=== PATIENT | female | born 1985 | race Caucasian/White ===

== ENCOUNTER 2017-07-14 11:55 | Emergency (ER) | payer OTHER, MEDICAID ==
[~2017-07-14] VITALS: Ht 162.6 cm; Wt 79.4 kg
[~2017-07-14 11:55] MED LIST: ABILIFY10 MG PO; ACETAMINOPHEN-1 EAC1 PO; BACTRIM DS TAB1 EACH PO; CYMBALTA30 MG PO; CYTOMEL 25 MCG25 MC1 PO; IBUPROFEN 600600 M1 PO; IBUPROFEN 800800 M1 PO; KLONOPIN0.5 MG PO; LAMICTAL (GREE1 EACH PO; LEVOTHYROXIN0.025 MG PO; LEVOTHYROXIN0.137 M1 PO; LEVOTHYROXINE 0.15MG; MACROBID 100 M100 M1 PO; NAPROSYN500 MG PO; NORCO 5-325 TA1 EACH PO; PENICILLIN V P500 MG PO; PENICILLIN VK500 M1 PO; RISPERDAL0.25 MG PO; TRAMADOL 50 MG50 MG PO; TRAZODONE 150150 M1 PO; ZOFRAN ODT4 MG PO
[2017-07-14 12:15] VITALS: BP 110/70
[2017-07-14] MEDS ORDERED: CELEXA20 MG PO (12:17)
[2017-07-14] MEDS ORDERED: AMOXICILLIN 50500 MG PO (12:40)
[2017-07-14] MEDS ORDERED: ACETAMINOPHEN-1 EAC1 PO (12:40)
== END 2017-07-14 12:48 | disposition home or self-care (01) ==
LOC: M.ERS 11:55
DX: K08.89 Other specified disorders of teeth and supporting structures (principal); F41.9 Anxiety disorder, unspecified; E03.9 Hypothyroidism, unspecified; M41.9 Scoliosis, unspecified; E06.3 Autoimmune thyroiditis; F31.9 Bipolar disorder, unspecified; F20.9 Schizophrenia, unspecified; M13.862 Other specified arthritis, left knee; M13.861 Other specified arthritis, right knee; M79.7 Fibromyalgia; Z90.710 Acquired absence of both cervix and uterus; Z98.890 Other specified postprocedural states; Z88.6 Allergy status to analgesic agent; Z88.4 Allergy status to anesthetic agent; Z77.22 Contact with and (suspected) exposure to environmental tobacco smoke (acute) (chronic)

== ENCOUNTER 2017-07-28 15:26 | Emergency (ER) | payer OTHER, MEDICAID ==
[~2017-07-28] VITALS: Ht 162.6 cm; Wt 78.0 kg
[~2017-07-28 15:26] MED LIST changes: +AMOXICILLIN 50500 MG PO; +CELEXA20 MG PO
[2017-07-28 15:33] VITALS: BP 121/73
[2017-07-28] MEDS ORDERED: NORCO 5-325 TA1 EAC1 PO (15:55)
[2017-07-28] MEDS ORDERED: PENICILLIN VK500 MG PO (15:55)
== END 2017-07-28 16:01 | disposition home or self-care (01) ==
LOC: M.ERS 15:26
DX: K02.9 Dental caries, unspecified (principal); M27.63 Post-osseointegration mechanical failure of dental implant; F41.9 Anxiety disorder, unspecified; E03.9 Hypothyroidism, unspecified; M41.9 Scoliosis, unspecified; E06.3 Autoimmune thyroiditis; F31.9 Bipolar disorder, unspecified; F20.9 Schizophrenia, unspecified; M13.862 Other specified arthritis, left knee; M13.861 Other specified arthritis, right knee; M79.7 Fibromyalgia; Z86.14 Personal history of Methicillin resistant Staphylococcus aureus infection; Z90.710 Acquired absence of both cervix and uterus; Z88.6 Allergy status to analgesic agent; Z88.8 Allergy status to other drugs, medicaments and biological substances; Z88.4 Allergy status to anesthetic agent; Z77.22 Contact with and (suspected) exposure to environmental tobacco smoke (acute) (chronic)

== ENCOUNTER 2017-08-14 20:04 | Emergency (ER) | payer OTHER, MEDICAID ==
[~2017-08-14] VITALS: Ht 162.6 cm; Wt 83.5 kg
[~2017-08-14 20:04] MED LIST changes: +NORCO 5-325 TA1 EAC1 PO; +PENICILLIN VK500 MG PO
[2017-08-14 20:30] LABS: ABSOLUTE EOSINOPHILS 0.3 thou/uL (0.0-0.7); ABSOLUTE LYMPHOCYTES 3.6 thou/uL (0.8-5.3); ABSOLUTE MONOCYTES 0.5 thou/uL (0.0-1.2); ABSOLUTE NEUTROPHILS 3.2 thou/uL (1.6-8.1); BASOPHILS 0.6 %; EOSINOPHILS 3.8 %; HEMATOCRIT 37.7 % (37.0-47.0); HEMOGLOBIN 12.7 gm/dL (12.0-15.0); LYMPHOCYTES 47.5 %; MCH 30.5 pg (26.0-34.0); MCHC 33.7 g/dL (28.0-37.0); MCV 90.4 fL (80.0-100.0); MONOCYTES 6.3 %; MPV 9.1 fl. (7.2-11.1); NUCLEATED RBCS 0 /100WBC; PLATELET COUNT* 152 thou/uL (150-400); POLYS 41.8 %; RBC 4.17 mil/uL (4.20-5.00); RDW-CV 13.1 % (10.5-14.5); WBC 7.6 thou/uL (4.0-11.0)
[2017-08-14 20:32] LABS: URINE BILIRUBIN NEGATIVE (Negative); URINE BLOOD NEGATIVE (Negative); URINE CLARITY CLEAR; URINE COLOR STRAW; URINE GLUCOSE-RANDOM NEGATIVE (Negative); URINE KETONES NEGATIVE (Negative); URINE LEUKOCYTES-REFLEX NEGATIVE (Negative); URINE NITRITE-REFLEX NEGATIVE (Negative); URINE PROTEIN NEGATIVE (Negative); URINE SPECIFIC GRAVITY 1.015 (1.005-1.030); URINE UROBILINOGEN 0.2 E.U./dl (0.2-1.0)
[2017-08-14 20:59] LABS: ANION GAP 7 mmol/L (7-16); BUN 9 mg/dL (7-18); CALCIUM 9.3 mg/dL (8.5-10.1); CHLORIDE 104 mmol/L (98-107); CO2 28 mmol/L (21-32); CREATININE 0.9 mg/dL (0.6-1.3); GLUCOSE 88 mg/dL (70-99); POTASSIUM 3.8 mmol/L (3.5-5.1); SODIUM 139 mmol/L (136-145)
[2017-08-14 21:06] LABS: ALBUMIN 3.4 g/dL (3.4-5.0); ALKALINE PHOSPHATASE 49 U/L (46-116); SGOT 17 U/L (15-37); SGPT 21 U/L (30-65); TOTAL BILIRUBIN 0.2 mg/dL (<0.1-1.0); TOTAL PROTEIN 6.9 g/dL (6.4-8.2); TROPONIN-I LEVEL <0.06 ng/mL (<0.06)
[2017-08-14 21:06] LABS: AMP/METHAMP Negative (Negative); BARBITURATES Negative (Negative); BENZODIAZEPINES Negative (Negative); COCAINE Negative (Negative); METHADONE Negative (Negative); OPIATES Negative (Negative); PCP Negative (Negative); THC POSITIVE (Negative)
[2017-08-14 21:30] VITALS: BP 99/66
--- NOTE | 2017-08-15 10:53 | EKG ---
[place] [address] ELECTROCARDIOGRAM REPORT Name: AILEEN VALDIVIAANDA ORLANDO Room: [facility]#: [id number] Admission: 08/14/17 Attend Phys: Discharge: 08/14/17 Date of : [birth year] Report #: [id number] THIS REPORT FOR: //name// [facility] ED Test Date: 2017-08-14 Test Time: 20:16:21 Pat Name: OLAMIDE VALDIVIA Department: Room: Gender: F Final Inspector Paper: KRISTINA Bernal : 1985 Requested By: Jessy Goins Order Number: [id number] MD: Daniel Kwok Measurements Intervals [place] Rate: 73 P: 37 MT: 178 QRS: 146 QRSD: 94 T: 26 QT: 364 QTc: 401 Interpretive Statements Sinus rhythm right superior axis Low voltage, precordial leads Consider anterior infarct Baseline wander in lead(s) I,III,aVR,aVL Compared to ECG 01/09/2015 18:25:54 no change Electronically Signed On 08-15-2017 10:53:29 CDT by Daniel Kwok [email or web address] <ELECTRONICALLY SIGNED> By: Daniel Kwok MD, FACC 08/15/17 1053 15 15 Daniel Kwok MD, FAC /EPI
== END 2017-08-14 21:30 | disposition home or self-care (01) ==
LOC: M.ERS 20:04
PROVIDERS: Emergency Medicine
DX: R07.89 Other chest pain (principal); F41.9 Anxiety disorder, unspecified; E03.9 Hypothyroidism, unspecified; F32.9 Major depressive disorder, single episode, unspecified; F20.9 Schizophrenia, unspecified; M13.862 Other specified arthritis, left knee; M13.861 Other specified arthritis, right knee; M79.7 Fibromyalgia; Z86.14 Personal history of Methicillin resistant Staphylococcus aureus infection; Z88.6 Allergy status to analgesic agent; Z88.8 Allergy status to other drugs, medicaments and biological substances; Z88.4 Allergy status to anesthetic agent; Z77.22 Contact with and (suspected) exposure to environmental tobacco smoke (acute) (chronic)

== ENCOUNTER 2017-09-28 11:24 | Emergency (ER) | payer OTHER, MEDICAID ==
[~2017-09-28] VITALS: Ht 162.6 cm; Wt 79.4 kg
[2017-09-28] MEDS ORDERED: LEVOTHYROXINE100 MC1 PO (11:33)
[2017-09-28 12:04] LABS: ABSOLUTE BASOPHILS 0.1 thou/uL (0.0-0.2); ABSOLUTE EOSINOPHILS 0.3 thou/uL (0.0-0.7); ABSOLUTE MONOCYTES 0.6 thou/uL (0.0-1.2); ABSOLUTE NEUTROPHILS 3.4 thou/uL (1.6-8.1); BASOPHILS 0.7 %; EOSINOPHILS 3.6 %; HEMOGLOBIN 13.8 gm/dL (12.0-15.0); LYMPHOCYTES 41.4 %; MCH 30.2 pg (26.0-34.0); MCHC 33.6 g/dL (28.0-37.0); MONOCYTES 7.7 %; MPV 8.3 fl. (7.2-11.1); NUCLEATED RBCS 0 /100WBC; PLATELET COUNT* 171 thou/uL (150-400); POLYS 46.6 %; RBC 4.56 mil/uL (4.20-5.00); RDW-CV 13.7 % (10.5-14.5); WBC 7.3 thou/uL (4.0-11.0)
[2017-09-28 12:12] LABS: CALCIUM 8.4 mg/dL (8.5-10.1); CREATININE 0.8 mg/dL (0.6-1.3)
[2017-09-28 12:20] LABS: URINE BILIRUBIN NEGATIVE (Negative); URINE BLOOD NEGATIVE (Negative); URINE CLARITY CLEAR; URINE COLOR YELLOW; URINE GLUCOSE-RANDOM NEGATIVE (Negative); URINE KETONES NEGATIVE (Negative); URINE LEUKOCYTES-REFLEX NEGATIVE (Negative); URINE NITRITE-REFLEX NEGATIVE (Negative); URINE PROTEIN NEGATIVE (Negative); URINE UROBILINOGEN 0.2 E.U./dl (0.2-1.0)
[2017-09-28 12:28] LABS: AMP/METHAMP Negative (Negative); BARBITURATES Negative (Negative); BENZODIAZEPINES Negative (Negative); COCAINE Negative (Negative); METHADONE Negative (Negative); OPIATES Negative (Negative); PCP Negative (Negative); THC Negative (Negative)
[2017-09-28 12:49] LABS: INFLUENZA A ANTIGEN None Detected (None Detect); INFLUENZA B ANTIGEN None Detected (None Detect)
[2017-09-28] MEDS ORDERED: ZPAK PO (13:01)
[2017-09-28] MEDS ORDERED: ULTRAM 50MG TAB50 MG PO (13:01)
[2017-09-28] MEDS ORDERED: PREDNISONE 10 M10 M1 PO (13:01)
[2017-09-28] MEDS ORDERED: FLEXERIL PO (13:01)
[2017-09-28 13:20] VITALS: BP 109/74
== END 2017-09-28 13:23 | disposition home or self-care (01) ==
LOC: M.ERS 11:24
PROVIDERS: Nurse Practitioner
DX: J18.9 Pneumonia, unspecified organism (principal); E03.9 Hypothyroidism, unspecified; F31.9 Bipolar disorder, unspecified; F25.9 Schizoaffective disorder, unspecified; M79.7 Fibromyalgia; Z86.14 Personal history of Methicillin resistant Staphylococcus aureus infection; Z90.710 Acquired absence of both cervix and uterus; Z88.6 Allergy status to analgesic agent; Z88.8 Allergy status to other drugs, medicaments and biological substances; Z77.22 Contact with and (suspected) exposure to environmental tobacco smoke (acute) (chronic)

== ENCOUNTER 2017-11-17 19:36 | Emergency (ER) | payer OTHER, MEDICAID ==
[~2017-11-17] VITALS: Ht 162.6 cm; Wt 86.2 kg
[~2017-11-17 19:36] MED LIST changes: +FLEXERIL PO; +LEVOTHYROXINE100 MC1 PO; +PREDNISONE 10 M10 M1 PO; +ULTRAM 50MG TAB50 MG PO; +ZPAK PO
[2017-11-17] MEDS ORDERED: TRAZODONE 150150 M1 (19:44)
[2017-11-17] MEDS ORDERED: LAMICTAL100 MG (19:44)
[2017-11-17] MEDS ORDERED: RISPERDAL2 MG (19:45)
[2017-11-17] MEDS ORDERED: PREDNISONE50 MG PO (19:52)
[2017-11-17] MEDS ORDERED: OMEPRAZOLE40 MG PO (19:52)
[2017-11-17 20:14] VITALS: BP 120/80
== END 2017-11-17 20:16 | disposition home or self-care (01) ==
LOC: M.ERS 19:36
DX: L23.9 Allergic contact dermatitis, unspecified cause (principal); M79.7 Fibromyalgia; M13.862 Other specified arthritis, left knee; M13.861 Other specified arthritis, right knee; F31.9 Bipolar disorder, unspecified; F41.9 Anxiety disorder, unspecified; E03.9 Hypothyroidism, unspecified; F25.9 Schizoaffective disorder, unspecified; Z88.8 Allergy status to other drugs, medicaments and biological substances

== ENCOUNTER 2017-12-01 13:52 | Emergency (ER) | payer OTHER, MEDICAID ==
[~2017-12-01] VITALS: Ht 165.1 cm; Wt 85.3 kg
[~2017-12-01 13:52] MED LIST changes: +LAMICTAL100 MG; +OMEPRAZOLE40 MG PO; +PREDNISONE50 MG PO; +RISPERDAL2 MG; +TRAZODONE 150150 M1
[2017-12-01] MEDS ORDERED: LATUDA40 MG PO (14:19)
[2017-12-01] MEDS ORDERED: AMOXICILLIN 50500 MG PO (14:41)
[2017-12-01] MEDS ORDERED: ACETAMINOPHEN-1 EAC1 PO (14:41)
[2017-12-01] MEDS ORDERED: IBUPROFEN 800800 MG PO (14:41)
[2017-12-01 15:09] VITALS: BP 110/77
[2017-12-02] MEDS ORDERED: NORCO 5-325 TA1 EACH PO (04:29)
== END 2017-12-01 15:10 | disposition home or self-care (01) ==
LOC: M.ERS 13:52
DX: K04.7 Periapical abscess without sinus (principal); H92.01 Otalgia, right ear; F41.9 Anxiety disorder, unspecified; E03.9 Hypothyroidism, unspecified; F31.9 Bipolar disorder, unspecified; M19.90 Unspecified osteoarthritis, unspecified site; M79.7 Fibromyalgia; Z90.710 Acquired absence of both cervix and uterus; Z86.14 Personal history of Methicillin resistant Staphylococcus aureus infection; Z88.6 Allergy status to analgesic agent; Z77.22 Contact with and (suspected) exposure to environmental tobacco smoke (acute) (chronic)

== ENCOUNTER 2017-12-02 04:10 | Emergency (ER) | payer OTHER, MEDICAID ==
[~2017-12-02] VITALS: Ht 165.1 cm; Wt 85.3 kg
[~2017-12-02 04:10] MED LIST changes: +IBUPROFEN 800800 MG PO; +LATUDA40 MG PO
[2017-12-02 04:14] VITALS: BP 142/85
[2017-12-02] MEDS ORDERED: NORCO 5-325 TA1 EACH PO (04:29)
== END 2017-12-02 04:44 | disposition home or self-care (01) ==
LOC: M.ERS 04:10
DX: K04.7 Periapical abscess without sinus (principal); F31.9 Bipolar disorder, unspecified; F25.9 Schizoaffective disorder, unspecified; M17.0 Bilateral primary osteoarthritis of knee; M79.7 Fibromyalgia; F41.9 Anxiety disorder, unspecified; E03.9 Hypothyroidism, unspecified; F17.210 Nicotine dependence, cigarettes, uncomplicated; Z88.6 Allergy status to analgesic agent; Z88.8 Allergy status to other drugs, medicaments and biological substances; Z90.710 Acquired absence of both cervix and uterus; Z85.41 Personal history of malignant neoplasm of cervix uteri; Z86.14 Personal history of Methicillin resistant Staphylococcus aureus infection

== ENCOUNTER 2017-12-04 18:02 | Emergency (ER) | payer OTHER, MEDICAID ==
[~2017-12-04] VITALS: Ht 165.1 cm; Wt 81.7 kg
[2017-12-04] MEDS ORDERED: NORCO 5-325 TA1 EAC1 PO (19:05)
[2017-12-04] MEDS ORDERED: CLEOCIN HCL150 MG PO (19:05)
[2017-12-04 19:20] VITALS: BP 105/71
== END 2017-12-04 19:21 | disposition home or self-care (01) ==
LOC: M.ERS 18:02
DX: K02.9 Dental caries, unspecified (principal); K04.7 Periapical abscess without sinus; F41.9 Anxiety disorder, unspecified; E03.9 Hypothyroidism, unspecified; F31.9 Bipolar disorder, unspecified; F25.9 Schizoaffective disorder, unspecified; M17.0 Bilateral primary osteoarthritis of knee; M79.7 Fibromyalgia; M41.9 Scoliosis, unspecified; F17.210 Nicotine dependence, cigarettes, uncomplicated; Z86.14 Personal history of Methicillin resistant Staphylococcus aureus infection; Z85.41 Personal history of malignant neoplasm of cervix uteri; Z90.710 Acquired absence of both cervix and uterus; Z88.6 Allergy status to analgesic agent; Z88.8 Allergy status to other drugs, medicaments and biological substances

== ENCOUNTER 2018-01-18 07:24 | Emergency (ER) | payer OTHER, MEDICAID ==
[~2018-01-18] VITALS: Ht 162.6 cm; Wt 87.5 kg
[~2018-01-18 07:24] MED LIST changes: +CLEOCIN HCL150 MG PO
[2018-01-18 09:10] VITALS: BP 120/82
[2018-01-18] MEDS ORDERED: ACETAMINOPHEN-1 EAC1 PO (20:01)
[2018-01-18] MEDS ORDERED: NABUMETONE 750750 M1 PO (20:01)
[2018-01-18] MEDS ORDERED: CLEOCIN HCL150 MG PO (20:01)
== END 2018-01-18 09:27 | disposition left against medical advice (07) ==
LOC: M.ERS 07:24
DX: Z53.21 Procedure and treatment not carried out due to patient leaving prior to being seen by health care provider (principal)

== ENCOUNTER 2018-01-18 19:29 | Emergency (ER) | payer OTHER, MEDICAID ==
[~2018-01-18] VITALS: Ht 162.6 cm; Wt 86.2 kg
[2018-01-18] MEDS ORDERED: NABUMETONE 750750 M1 PO (20:01)
[2018-01-18] MEDS ORDERED: CLEOCIN HCL150 MG PO (20:01)
[2018-01-18] MEDS ORDERED: ACETAMINOPHEN-1 EAC1 PO (20:01)
[2018-01-18 20:25] VITALS: BP 119/76
== END 2018-01-18 20:26 | disposition home or self-care (01) ==
LOC: M.ERS 19:29
DX: K04.7 Periapical abscess without sinus (principal); E03.9 Hypothyroidism, unspecified; M13.862 Other specified arthritis, left knee; M13.861 Other specified arthritis, right knee; F25.9 Schizoaffective disorder, unspecified; F17.210 Nicotine dependence, cigarettes, uncomplicated; Z86.14 Personal history of Methicillin resistant Staphylococcus aureus infection; Z88.6 Allergy status to analgesic agent; Z88.8 Allergy status to other drugs, medicaments and biological substances

== ENCOUNTER 2018-05-27 14:22 | Emergency (ER) | payer OTHER, MEDICAID ==
[~2018-05-27] VITALS: Ht 162.6 cm; Wt 80.7 kg
[~2018-05-27 14:22] MED LIST changes: +NABUMETONE 750750 M1 PO
[2018-05-27] MEDS ORDERED: ONDANSETRON HCL4 M2 PO (15:16)
[2018-05-27] MEDS ORDERED: AUGMENTIN 875-1 EACH PO (15:16)
[2018-05-27 15:19] LABS: INFLUENZA A ANTIGEN None Detected (None Detect); INFLUENZA B ANTIGEN None Detected (None Detect)
[2018-05-27] MEDS ORDERED: AFRIN15 ML NASAL (15:19)
[2018-05-27 15:24] VITALS: BP 130/91
== END 2018-05-27 15:26 | disposition home or self-care (01) ==
LOC: M.ERS 14:22
PROVIDERS: Nurse Practitioner Family
DX: J06.9 Acute upper respiratory infection, unspecified (principal); R11.10 Vomiting, unspecified; F41.9 Anxiety disorder, unspecified; E03.9 Hypothyroidism, unspecified; M41.9 Scoliosis, unspecified; F31.9 Bipolar disorder, unspecified; M13.862 Other specified arthritis, left knee; M13.861 Other specified arthritis, right knee; M79.7 Fibromyalgia; F17.210 Nicotine dependence, cigarettes, uncomplicated; Z88.6 Allergy status to analgesic agent; Z88.1 Allergy status to other antibiotic agents; Z98.890 Other specified postprocedural states; Z90.710 Acquired absence of both cervix and uterus; Z85.41 Personal history of malignant neoplasm of cervix uteri; Z88.8 Allergy status to other drugs, medicaments and biological substances; Z86.14 Personal history of Methicillin resistant Staphylococcus aureus infection

== ENCOUNTER 2018-06-05 22:24 | Emergency (ER) | payer OTHER, MEDICAID ==
[~2018-06-05] VITALS: Ht 162.6 cm; Wt 79.8 kg
[~2018-06-05 22:24] MED LIST changes: +AFRIN15 ML NASAL; +AUGMENTIN 875-1 EACH PO; +ONDANSETRON HCL4 M2 PO
[2018-06-05] MEDS ORDERED: CYCLOBENZAPRINE5 MG PO (22:52)
[2018-06-05 23:25] VITALS: BP 127/82
== END 2018-06-05 23:25 | disposition home or self-care (01) ==
LOC: M.ERS 22:24
DX: S46.912A Strain of unspecified muscle, fascia and tendon at shoulder and upper arm level, left arm, initial encounter (principal); F41.9 Anxiety disorder, unspecified; E03.9 Hypothyroidism, unspecified; F31.9 Bipolar disorder, unspecified; M19.90 Unspecified osteoarthritis, unspecified site; M79.7 Fibromyalgia; F17.210 Nicotine dependence, cigarettes, uncomplicated; Z88.6 Allergy status to analgesic agent; Z88.8 Allergy status to other drugs, medicaments and biological substances; X58.XXXA Exposure to other specified factors, initial encounter; Y93.89 Activity, other specified; Y92.89 Other specified places as the place of occurrence of the external cause; Y99.8 Other external cause status

== ENCOUNTER 2018-06-13 18:31 | Emergency (ER) | payer OTHER, MEDICAID ==
[~2018-06-13] VITALS: Ht 154.9 cm; Wt 83.0 kg
[~2018-06-13 18:31] MED LIST changes: +CYCLOBENZAPRINE5 MG PO
[2018-06-13] MEDS ORDERED: ROBAXIN 750 MG750 M1 PO (18:59)
[2018-06-13] MEDS ORDERED: CELEXA20 MG PO (18:59)
[2018-06-13] MEDS ORDERED: MOBIC7.5 MG PO (20:33)
[2018-06-13 21:03] VITALS: BP 114/79
== END 2018-06-13 21:02 | disposition home or self-care (01) ==
LOC: M.ERS 18:31
DX: M25.512 Pain in left shoulder (principal); F31.9 Bipolar disorder, unspecified; F25.9 Schizoaffective disorder, unspecified; M13.862 Other specified arthritis, left knee; M13.861 Other specified arthritis, right knee; M79.7 Fibromyalgia; F41.9 Anxiety disorder, unspecified; E03.9 Hypothyroidism, unspecified; M41.9 Scoliosis, unspecified; F17.210 Nicotine dependence, cigarettes, uncomplicated; Z88.6 Allergy status to analgesic agent; Z88.8 Allergy status to other drugs, medicaments and biological substances; Z98.890 Other specified postprocedural states; Z90.710 Acquired absence of both cervix and uterus; Z85.41 Personal history of malignant neoplasm of cervix uteri; Z86.14 Personal history of Methicillin resistant Staphylococcus aureus infection

== ENCOUNTER 2019-08-18 01:00 | Emergency (ER) | payer OTHER ==
[~2019-08-18] VITALS: Ht 162.6 cm; Wt 88.5 kg
[~2019-08-18 01:00] MED LIST changes: +MOBIC7.5 MG PO; +ROBAXIN 750 MG750 M1 PO
[2019-08-18 01:18] LABS: URINE BILIRUBIN NEGATIVE (Negative); URINE BLOOD NEGATIVE (Negative); URINE CLARITY CLEAR; URINE COLOR YELLOW; URINE GLUCOSE-RANDOM NEGATIVE (Negative); URINE KETONES NEGATIVE (Negative); URINE LEUKOCYTES-REFLEX NEGATIVE (Negative); URINE NITRITE-REFLEX NEGATIVE (Negative); URINE PROTEIN NEGATIVE (Negative); URINE SPECIFIC GRAVITY 1.015 (1.005-1.030); URINE UROBILINOGEN 0.2 E.U./dl (0.2-1.0)
[2019-08-18] MEDS ORDERED: LAMOTRIGINE250 MG PO (01:23)
[2019-08-18] MEDS ORDERED: PRAZOSIN 1 MG CA1 M1 PO (01:24)
[2019-08-18 01:33] LABS: ABSOLUTE BASOPHILS 0.1 thou/uL (0.0-0.2); ABSOLUTE EOSINOPHILS 0.3 thou/uL (0.0-0.7); ABSOLUTE LYMPHOCYTES 3.5 thou/uL (0.8-5.3); ABSOLUTE MONOCYTES 0.4 thou/uL (0.0-1.2); ABSOLUTE NEUTROPHILS 3.1 thou/uL (1.6-8.1); BASOPHILS 0.9 %; EOSINOPHILS 4.3 %; HEMOGLOBIN 13.5 gm/dL (12.0-15.0); MCH 30.4 pg (26.0-34.0); MCHC 34.5 g/dL (28.0-37.0); MCV 88.1 fL (80.0-100.0); MONOCYTES 5.9 %; MPV 9.9 fl. (7.2-11.1); NUCLEATED RBCS 0 /100WBC; PLATELET COUNT* 146 thou/uL (150-400); POLYS 41.9 %; RBC 4.43 mil/uL (4.20-5.00); RDW-CV 13.7 % (10.5-14.5); WBC 7.4 thou/uL (4.0-11.0)
[2019-08-18 02:22] LABS: CALCIUM 7.4 mg/dL (8.5-10.1); CREATININE 0.8 mg/dL (0.6-1.3); POTASSIUM 3.2 mmol/L (3.5-5.1)
[2019-08-18 02:30] LABS: ALBUMIN 3.1 g/dL (3.4-5.0); INFLUENZA A ANTIGEN Negative (Negative); INFLUENZA B ANTIGEN Negative (Negative); TOTAL BILIRUBIN 0.3 mg/dL (<0.1-1.0); TOTAL PROTEIN 5.9 g/dL (6.4-8.2)
[2019-08-18 02:38] LABS: AMP/METHAMP Negative (Negative); BARBITURATES Negative (Negative); BENZODIAZEPINES Negative (Negative); COCAINE Negative (Negative); METHADONE Negative (Negative); OPIATES POSITIVE (Negative); PCP Negative (Negative); THC POSITIVE (Negative)
[2019-08-18] MEDS ORDERED: ZOFRAN ODT4 MG PO (06:04)
[2019-08-18 06:09] VITALS: BP 107/72
--- NOTE | 2019-08-24 12:21 | EKG ---
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1985 Requested By: Jessy Goins Order Number: [id number] MD: Martin Gilbert Measurements Intervals [place] Rate: 60 P: 47 AL: 201 QRS: 107 QRSD: 102 T: 44 QT: 415 QTc: 415 Interpretive Statements Sinus rhythm Low voltage, extremity and precordial leads Compared to ECG 08/14/2017 20:16:21 Right superior axis no longer present Myocardial infarct finding no longer present Electronically Signed On 08-18-2019 13:06:23 CDT by Martin Gilbert [email or web address] <ELECTRONICALLY SIGNED> By: Martin Gilbert MD, FACC 08/18/19 1306 0352 0352 Martin Gilbert MD, [facility] /EPI
== END 2019-08-18 06:10 | disposition home or self-care (01) ==
LOC: M.ERS 01:00
PROVIDERS: Emergency Medicine
DX: R11.2 Nausea with vomiting, unspecified (principal); R42 Dizziness and giddiness; E03.9 Hypothyroidism, unspecified; M79.7 Fibromyalgia; F41.9 Anxiety disorder, unspecified; F31.9 Bipolar disorder, unspecified; F17.210 Nicotine dependence, cigarettes, uncomplicated; Z98.51 Tubal ligation status; Z90.710 Acquired absence of both cervix and uterus; Z85.41 Personal history of malignant neoplasm of cervix uteri; Z98.890 Other specified postprocedural states; Z86.14 Personal history of Methicillin resistant Staphylococcus aureus infection; Z88.6 Allergy status to analgesic agent; Z88.8 Allergy status to other drugs, medicaments and biological substances

== ENCOUNTER 2020-01-06 14:04 | Emergency (ER) | payer OTHER ==
[~2020-01-06] VITALS: Ht 162.6 cm; Wt 82.1 kg
[~2020-01-06 14:04] MED LIST changes: +LAMOTRIGINE250 MG PO; +PRAZOSIN 1 MG CA1 M1 PO
[2020-01-06 14:12] VITALS: BP 113/80
[2020-01-06] MEDS ORDERED: BACTRIM DS TAB1 EAC1 PO (14:15)
[2020-01-06] MEDS ORDERED: MUPIROCIN1 GM TOP (14:15)
[2020-01-06] MEDS ORDERED: UNITHROID200 MCG PO (14:15)
[2020-01-06] MEDS ORDERED: NEURONTIN 300M300 M2 PO (14:16)
[2020-01-06] MEDS ORDERED: CLINDAMYCIN HC150 MG PO (15:06)
[2020-01-06] MEDS ORDERED: TRAMADOL 50 MG50 MG PO (15:06)
== END 2020-01-06 15:08 | disposition home or self-care (01) ==
LOC: M.ERS 14:04
DX: L02.412 Cutaneous abscess of left axilla (principal); E03.9 Hypothyroidism, unspecified; M19.90 Unspecified osteoarthritis, unspecified site; M79.7 Fibromyalgia; F31.9 Bipolar disorder, unspecified; F41.9 Anxiety disorder, unspecified; F17.210 Nicotine dependence, cigarettes, uncomplicated; Z90.710 Acquired absence of both cervix and uterus; Z98.51 Tubal ligation status; Z85.41 Personal history of malignant neoplasm of cervix uteri; Z98.890 Other specified postprocedural states; Z86.14 Personal history of Methicillin resistant Staphylococcus aureus infection; Z88.4 Allergy status to anesthetic agent; Z88.8 Allergy status to other drugs, medicaments and biological substances

== ENCOUNTER 2020-03-04 06:42 | Emergency (ER) | payer OTHER ==
[~2020-03-04] VITALS: Ht 162.6 cm; Wt 82.6 kg
[~2020-03-04 06:42] MED LIST changes: +BACTRIM DS TAB1 EAC1 PO; +CLINDAMYCIN HC150 MG PO; +MUPIROCIN1 GM TOP; +NEURONTIN 300M300 M2 PO; +UNITHROID200 MCG PO
[2020-03-04 07:52] LABS: ABSOLUTE BASOPHILS 0.1 thou/uL (0.0-0.2); ABSOLUTE EOSINOPHILS 0.2 thou/uL (0.0-0.7); ABSOLUTE LYMPHOCYTES 2.7 thou/uL (0.8-5.3); ABSOLUTE MONOCYTES 0.4 thou/uL (0.0-1.2); ABSOLUTE NEUTROPHILS 3.4 thou/uL (1.6-8.1); HEMATOCRIT 40.4 % (37.0-47.0); HEMOGLOBIN 13.5 gm/dL (12.0-15.0); LYMPHOCYTES 39.3 %; MCH 29.4 pg (26.0-34.0); MCHC 33.4 g/dL (28.0-37.0); MCV 88.2 fL (80.0-100.0); MONOCYTES 6.1 %; MPV 8.7 fl. (7.2-11.1); NUCLEATED RBCS 0 /100WBC; PLATELET COUNT* 170 thou/uL (150-400); POLYS 50.6 %; RBC 4.59 mil/uL (4.20-5.00); RDW-CV 14.4 % (10.5-14.5); WBC 6.8 thou/uL (4.0-11.0)
[2020-03-04 07:59] LABS: CALCIUM 8.2 mg/dL (8.5-10.1); CREATININE 0.7 mg/dL (0.6-1.3); POTASSIUM 4.2 mmol/L (3.5-5.1)
[2020-03-04 08:04] LABS: ALBUMIN 3.3 g/dL (3.4-5.0); TOTAL BILIRUBIN 0.4 mg/dL (<0.1-1.0)
[2020-03-04 08:39] LABS: URINE BILIRUBIN NEGATIVE (Negative); URINE BLOOD NEGATIVE (Negative); URINE CLARITY CLEAR; URINE COLOR YELLOW; URINE GLUCOSE-RANDOM NEGATIVE (Negative); URINE KETONES NEGATIVE (Negative); URINE LEUKOCYTES-REFLEX NEGATIVE (Negative); URINE NITRITE-REFLEX NEGATIVE (Negative); URINE PROTEIN NEGATIVE (Negative); URINE SPECIFIC GRAVITY 1.015 (1.005-1.030); URINE UROBILINOGEN 0.2 E.U./dl (0.2-1.0)
[2020-03-04] MEDS ORDERED: IBUPROFEN 800800 M1 PO (09:47)
[2020-03-04] MEDS ORDERED: NORCO 5-325 TA1 EAC2 PO (09:47)
[2020-03-04] MEDS ORDERED: ZOFRAN ODT4 MG DISSOLVE (09:47)
[2020-03-04 10:00] VITALS: BP 107/72
== END 2020-03-04 10:00 | disposition home or self-care (01) ==
LOC: M.ERS 06:42
PROVIDERS: Emergency Medicine Emergency Medical Services
DX: N83.201 Unspecified ovarian cyst, right side (principal); M79.7 Fibromyalgia; M13.862 Other specified arthritis, left knee; M13.861 Other specified arthritis, right knee; E03.9 Hypothyroidism, unspecified; M41.9 Scoliosis, unspecified; F17.210 Nicotine dependence, cigarettes, uncomplicated; Z85.41 Personal history of malignant neoplasm of cervix uteri; Z98.51 Tubal ligation status; Z90.710 Acquired absence of both cervix and uterus; Z98.890 Other specified postprocedural states; Z86.14 Personal history of Methicillin resistant Staphylococcus aureus infection

== ENCOUNTER 2020-06-15 13:17 | Emergency (ER) | payer OTHER ==
[~2020-06-15] VITALS: Ht 162.6 cm; Wt 77.1 kg
[~2020-06-15 13:17] MED LIST changes: +NORCO 5-325 TA1 EAC2 PO; +ZOFRAN ODT4 MG DISSOLVE
[2020-06-15 14:03] LABS: URINE BILIRUBIN NEGATIVE (Negative); URINE BLOOD NEGATIVE (Negative); URINE COLOR YELLOW; URINE GLUCOSE-RANDOM NEGATIVE (Negative); URINE KETONES NEGATIVE (Negative); URINE LEUKOCYTES-REFLEX TRACE (Negative); URINE NITRITE-REFLEX POSITIVE (Negative); URINE PROTEIN NEGATIVE (Negative)
[2020-06-15 14:04] LABS: URINE CLARITY HAZY
[2020-06-15 14:14] LABS: ABSOLUTE BASOPHILS 0.1 thou/uL (0.0-0.2); ABSOLUTE EOSINOPHILS 0.2 thou/uL (0.0-0.7); ABSOLUTE LYMPHOCYTES 3.7 thou/uL (0.8-5.3); ABSOLUTE MONOCYTES 0.3 thou/uL (0.0-1.2); ABSOLUTE NEUTROPHILS 5.5 thou/uL (1.6-8.1); BASOPHILS 1.1 %; EOSINOPHILS 1.8 %; HEMATOCRIT 39.1 % (37.0-47.0); HEMOGLOBIN 13.1 gm/dL (12.0-15.0); MCH 29.9 pg (26.0-34.0); MCHC 33.6 g/dL (28.0-37.0); MONOCYTES 2.7 %; MPV 8.6 fl. (7.2-11.1); NUCLEATED RBCS 0 /100WBC; PLATELET COUNT* 180 thou/uL (150-400); POLYS 56.4 %; RDW-CV 13.4 % (10.5-14.5); WBC 9.7 thou/uL (4.0-11.0)
[2020-06-15 14:24] LABS: SQUAMOUS 4-10 Moderate /LPF (0-3)
[2020-06-15 14:25] LABS: BACTERIA-REFLEX >30 Many /HPF (None Seen); CASTS None Seen /LPF (None Seen); CRYSTALS None Seen /LPF (None Seen); URINE RBC None Seen /HPF (0-2); URINE WBC-REFLEX 0-5 Rare /HPF (0-5)
[2020-06-15 14:27] LABS: CALCIUM 9.2 mg/dL (8.5-10.1); CREATININE 0.9 mg/dL (0.6-1.3); POTASSIUM 3.7 mmol/L (3.5-5.1)
[2020-06-15 14:33] LABS: ALBUMIN 3.7 g/dL (3.4-5.0); TOTAL BILIRUBIN 0.3 mg/dL (<0.1-1.0); TOTAL PROTEIN 6.8 g/dL (6.4-8.2)
[2020-06-15] MEDS ORDERED: LEVOTHYROXINE200 MC2 PO (14:44)
[2020-06-15] MEDS ORDERED: KEFLEX500 M1 PO (14:44)
[2020-06-15 14:55] VITALS: BP 135/75
--- NOTE | 2020-06-16 10:32 | EKG ---
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 : 1985 Requested By: Danielito Knutson Order Number: [id number] MD: Daniel Kwok Measurements Intervals [place] Rate: 58 P: 28 NE: 194 QRS: 139 QRSD: 96 T: 22 QT: 408 QTc: 401 Interpretive Statements Sinus rhythm Left posterior fascicular block Low voltage, precordial leads Consider anterior infarct Compared to ECG 08/18/2019 03:52:19 no change Electronically Signed On 06-16-2020 10:32:05 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
== END 2020-06-15 14:55 | disposition home or self-care (01) ==
LOC: M.ERS 13:17
PROVIDERS: Emergency Medicine Emergency Medical Services
DX: N39.0 Urinary tract infection, site not specified (principal); E03.9 Hypothyroidism, unspecified; M41.9 Scoliosis, unspecified; M79.7 Fibromyalgia; M13.862 Other specified arthritis, left knee; M13.861 Other specified arthritis, right knee; F17.210 Nicotine dependence, cigarettes, uncomplicated; Z98.51 Tubal ligation status; Z90.710 Acquired absence of both cervix and uterus; Z98.890 Other specified postprocedural states; Z85.41 Personal history of malignant neoplasm of cervix uteri; Z86.14 Personal history of Methicillin resistant Staphylococcus aureus infection; Z90.89 Acquired absence of other organs

== ENCOUNTER 2020-10-12 00:45 | Emergency (ER) | payer OTHER ==
[~2020-10-12] VITALS: Ht 162.6 cm; Wt 86.2 kg
[~2020-10-12 00:45] MED LIST changes: +KEFLEX500 M1 PO; +LEVOTHYROXINE200 MC2 PO
[2020-10-12] MEDS ORDERED: XYZAL5 MG PO (01:00)
[2020-10-12] MEDS ORDERED: CEPHALEXIN500 MG PO (02:40)
[2020-10-12] MEDS ORDERED: ACETAMINOPHEN-1 EAC2 PO (02:40)
[2020-10-12 02:48] VITALS: BP 105/75
== END 2020-10-12 02:48 | disposition home or self-care (01) ==
LOC: M.ERS 00:45
DX: S99.822A Other specified injuries of left foot, initial encounter (principal); L03.032 Cellulitis of left toe; L60.0 Ingrowing nail; E03.9 Hypothyroidism, unspecified; M41.9 Scoliosis, unspecified; M79.7 Fibromyalgia; M13.862 Other specified arthritis, left knee; M13.861 Other specified arthritis, right knee; F17.210 Nicotine dependence, cigarettes, uncomplicated; Z85.41 Personal history of malignant neoplasm of cervix uteri; Z98.51 Tubal ligation status; Z98.890 Other specified postprocedural states; Z90.710 Acquired absence of both cervix and uterus; Z86.14 Personal history of Methicillin resistant Staphylococcus aureus infection; Z90.89 Acquired absence of other organs; W22.8XXA Striking against or struck by other objects, initial encounter; Y93.89 Activity, other specified; Y92.89 Other specified places as the place of occurrence of the external cause; Y99.8 Other external cause status

== ENCOUNTER 2020-10-26 15:20 | Emergency (ER) | payer OTHER ==
[~2020-10-26] VITALS: Ht 162.6 cm; Wt 88.9 kg
[~2020-10-26 15:20] MED LIST changes: +ACETAMINOPHEN-1 EAC2 PO; +CEPHALEXIN500 MG PO; +XYZAL5 MG PO
[2020-10-26] MEDS ORDERED: ZANTAC-360 (FAM20 MG PO (15:32)
[2020-10-26] MEDS ORDERED: CLEOCIN HCL300 MG PO (15:33)
[2020-10-26] MEDS ORDERED: HYDROCODON-ACE1 EAC7 PO (16:24)
[2020-10-26 16:35] VITALS: BP 126/96
== END 2020-10-26 16:36 | disposition home or self-care (01) ==
LOC: M.ERS 15:20
DX: L02.416 Cutaneous abscess of left lower limb (principal); M79.7 Fibromyalgia; E03.9 Hypothyroidism, unspecified; M41.9 Scoliosis, unspecified; F17.210 Nicotine dependence, cigarettes, uncomplicated; Z98.51 Tubal ligation status; Z90.710 Acquired absence of both cervix and uterus; Z98.890 Other specified postprocedural states; Z86.14 Personal history of Methicillin resistant Staphylococcus aureus infection; Z85.41 Personal history of malignant neoplasm of cervix uteri

== ENCOUNTER 2020-10-28 10:07 | Emergency (ER) | payer OTHER ==
[~2020-10-28] VITALS: Ht 162.6 cm; Wt 88.9 kg
[~2020-10-28 10:07] MED LIST changes: +CLEOCIN HCL300 MG PO; +HYDROCODON-ACE1 EAC7 PO; +ZANTAC-360 (FAM20 MG PO
[2020-10-28] MEDS ORDERED: XYZAL5 MG PO (10:21)
[2020-10-28] MEDS ORDERED: HYDROCODON-ACE1 EAC7 PO (10:57)
[2020-10-28 11:18] VITALS: BP 143/77
== END 2020-10-28 11:20 | disposition home or self-care (01) ==
LOC: M.ERS 10:07
DX: L02.416 Cutaneous abscess of left lower limb (principal); E03.9 Hypothyroidism, unspecified; M79.7 Fibromyalgia; F17.210 Nicotine dependence, cigarettes, uncomplicated; Z79.899 Other long term (current) drug therapy; Z90.89 Acquired absence of other organs; Z98.51 Tubal ligation status; Z90.710 Acquired absence of both cervix and uterus; Z98.890 Other specified postprocedural states; Z85.41 Personal history of malignant neoplasm of cervix uteri

== ENCOUNTER 2020-10-30 21:05 | Emergency (ER) | payer OTHER ==
[~2020-10-30] VITALS: Ht 162.6 cm; Wt 88.9 kg
[2020-10-30 23:31] LABS: ABSOLUTE BASOPHILS 0.1 thou/uL (0.0-0.2); ABSOLUTE EOSINOPHILS 0.3 thou/uL (0.0-0.7); ABSOLUTE LYMPHOCYTES 2.8 thou/uL (0.8-5.3); ABSOLUTE MONOCYTES 0.5 thou/uL (0.0-1.2); ABSOLUTE NEUTROPHILS 4.3 thou/uL (1.6-8.1); BASOPHILS 0.8 %; EOSINOPHILS 4.2 %; HEMATOCRIT 37.6 % (37.0-47.0); HEMOGLOBIN 12.9 gm/dL (12.0-15.0); LYMPHOCYTES 34.4 %; MCH 30.2 pg (26.0-34.0); MCHC 34.1 g/dL (28.0-37.0); MCV 88.5 fL (80.0-100.0); MONOCYTES 6.8 %; MPV 9.5 fl. (7.2-11.1); NUCLEATED RBCS 0 /100WBC; PLATELET COUNT* 207 thou/uL (150-400); POLYS 53.8 %; RBC 4.26 mil/uL (4.20-5.00); RDW-CV 12.9 % (10.5-14.5); WBC 8.1 thou/uL (4.0-11.0)
[2020-10-30 23:34] LABS: CREATININE 0.7 mg/dL (0.6-1.3); POTASSIUM 3.8 mmol/L (3.5-5.1)
[2020-10-30 23:39] LABS: ALBUMIN 3.1 g/dL (3.4-5.0); TOTAL BILIRUBIN 0.1 mg/dL (<0.1-1.0); TOTAL PROTEIN 7.5 g/dL (6.4-8.2)
[2020-10-31] MEDS ORDERED: DOXYCYCLINE 10100 MG PO (03:53)
[2020-10-31] MEDS ORDERED: PERCOCET 7.5-31 EAC1 PO (03:53)
[2020-10-31 04:27] VITALS: BP 110/72
== END 2020-10-31 04:27 | disposition home or self-care (01) ==
LOC: M.ERS 21:05
PROVIDERS: Emergency Medicine
DX: L03.116 Cellulitis of left lower limb (principal); M79.7 Fibromyalgia; E03.9 Hypothyroidism, unspecified; M41.9 Scoliosis, unspecified; M13.862 Other specified arthritis, left knee; M13.861 Other specified arthritis, right knee; F17.210 Nicotine dependence, cigarettes, uncomplicated; Z90.710 Acquired absence of both cervix and uterus; Z98.890 Other specified postprocedural states; Z85.41 Personal history of malignant neoplasm of cervix uteri; Z98.51 Tubal ligation status; Z90.89 Acquired absence of other organs; Z86.14 Personal history of Methicillin resistant Staphylococcus aureus infection